=== PATIENT | female | born 1985 ===

== ENCOUNTER 2023-11-03 04:57 | Inpatient (IN) | payer BC ==
[2023-11-03] MEDS ORDERED: Methylergonovine 0.2 MG/1 ML Amp IM PRN (05:22)
[2023-11-03] MEDS ORDERED: Carboprost Tromethamine 250 MCG/1 mL Vial IM PRN (05:22)
[2023-11-03] MEDS ORDERED: Sodium Chloride 0.9% 20 ML SDV IV PRN (05:22)
[2023-11-03] MEDS ORDERED: Ondansetron 4 MG/2 ML SDV IVPUSH PRN (05:22)
[2023-11-03] MEDS ORDERED: Lidocaine 1% 50 ML MDV INJECT PRN (05:22)
[2023-11-03] MEDS ORDERED: Water For Irrigation,Sterile 1,000 ML Container IRR PRN (05:22)
[2023-11-03] MEDS ORDERED: Tranexamic Acid IN NACL,ISO-OS 1,000 MG in Premix Bag 1 BAG IV PRN ×2 (05:22)
[2023-11-03] MEDS ORDERED: Butorphanol 1 MG/ML SDV IVPUSH PRN (05:22)
[2023-11-03] MEDS ORDERED: Sodium Chloride 0.9% 2.5 ML Syringe FLUSH PRN (05:22)
[2023-11-03] MEDS ORDERED: Misoprostol 200 MCG Tab PO PRN (05:22)
[2023-11-03] MEDS ORDERED: Sodium Chloride 0.9% 10 ML Syringe FLUSH PRN (05:22)
[2023-11-03] MEDS ORDERED: Terbutaline 1 MG/ML SDV SUBCUT PRN (05:24)
[2023-11-03] MEDS ORDERED: Misoprostol 25 MCG (1/4 of 100 MCG) Tab VAG PRN (05:24)
[2023-11-03] MEDS ORDERED: Oxytocin/0.9 % Sodium Chloride 30 UNIT/500 ML BAG IV SCH ×2 (05:30)
[2023-11-03 05:52] LABS: HEMATOCRIT 32.1 % (37.0-47.0); HEMOGLOBIN 11.2 g/dL (12.0-16.0); MEAN CORPUSCULAR HEMOGLOBIN 30.8 pg (28.0-32.0); MEAN CORPUSCULAR HGB CONC 34.9 g/dL (32.0-36.0); MEAN CORPUSCULAR VOLUME 88.2 fL (83.0-99.0); MEAN PLATELET VOLUME 10.3 fL (9.4-12.3); PLATELET COUNT,PLT 215 K/uL (150-400); RED BLOOD CELL COUNT 3.64 M/uL (4.10-5.30); WHITE BLOOD CELL COUNT,WBC 7.51 K/uL (3.9-11.3)
[2023-11-03] MEDS: Lactated Ringers 1,000 ML IV SCH ×3 (05:56→20:18)
[2023-11-03] MEDS ORDERED: ePHEDrine 50 MG/ML SDV IVPUSH PRN ×2 (07:18)
[2023-11-03] MEDS ORDERED: Phenylephrine HCl 0.5 MG/5 ML AMP IVPUSH PRN (07:18)
[2023-11-03] MEDS ORDERED: Ropivacaine HCl/PF 400 MG in Premix Bag 1 BAG EPIDUR SCH (07:30)
[2023-11-03] MEDS: Misoprostol 25 MCG (1/4 of 100 MCG) Tab VAG PRN ×2 (10:11→14:15)
[2023-11-03] MEDS ORDERED: dexmedeTOMIDine HCl 200 MCG/2 ML SDV ONE (19:16)
[2023-11-03] MEDS ORDERED: Acetaminophen 500 MG Tab PO PRN (21:54)
[2023-11-03] MEDS ORDERED: Docusate Sodium 100 MG Cap PO PRN (21:54)
[2023-11-03] MEDS ORDERED: oxyCODONE 5 MG Tab PO PRN (21:54)
[2023-11-03] MEDS ORDERED: Lanolin 100% Cream 7 GM Tube TOP PRN (21:54)
[2023-11-04] MEDS: Witch Hazel Medicated Pads 40/Jar TOP PRN ×2 (00:16→21:49)
[2023-11-04] MEDS: Benzocaine/Menthol 20%-0.5% Spray 78 GM Cannister TOP PRN ×2 (00:17→21:50)
[2023-11-04] MEDS: Ibuprofen 800 MG Tab PO PRN ×3 (04:47→21:48)
[2023-11-04 06:44] LABS: HEMATOCRIT 26.4 % (37.0-47.0); HEMOGLOBIN 9.2 g/dL (12.0-16.0)
[2023-11-04] MEDS ORDERED: Sertraline 100 MG Tab PO SCH (09:00)
[2023-11-04 22:30] VITALS: BP 113/61; PULSE 72
== END 2023-11-04 23:00 | disposition home or self-care (01) | DRG 560 ==
LOC: MW.OBCHECK 04:57 → MW.OB 04:58 → MW.OBCHECK 05:22 → OBSVTOIN 05:22 → MW.OB 11-04 02:10
PROVIDERS: ADMIT Obstetrics & Gynecology; ATTEND Obstetrics & Gynecology
PROC: 10E0XZZ Delivery of Products of Conception, External Approach (ICD-10-PCS; principal; 2023-11-03)
PROC: 10907ZC Drainage of Amniotic Fluid, Therapeutic from Products of Conception, Via Natural or Artificial Opening (ICD-10-PCS; 2023-11-03)
PROC: 3E0P7VZ Introduction of Hormone into Female Reproductive, Via Natural or Artificial Opening (ICD-10-PCS; 2023-11-03)
DX: O62.3 Precipitate labor (principal); O99.344 Other mental disorders complicating childbirth; F32.A Depression, unspecified; L93.0 Discoid lupus erythematosus; O99.892 Other specified diseases and conditions complicating childbirth; F41.9 Anxiety disorder, unspecified; O69.81X0 Labor and delivery complicated by cord around neck, without compression, not applicable or unspecified; Z37.0 Single live birth; Z3A.36 36 weeks gestation of pregnancy
CPT/HCPCS: 01967; 36415; 51702; 59025; 59409; 85014; 85018; 85027; 86592; 86850; 86900; 86901; A9270-GY; J2590; J2795; J3490; J7120